=== PATIENT | female | born 1935 | race Caucasian/White ===

== ENCOUNTER 2017-09-24 20:23 | Emergency (ER) | payer MEDICARE ==
[~2017-09-24] VITALS: Ht 154.9 cm; Wt 72.6 kg
[2017-09-24] MEDS ORDERED: CEFTRIAXONE SOD 1 GM VIAL IV STA ×2 (20:24→22:18)
[2017-09-24] MEDS ORDERED: SODIUM CHLORIDE 0.9% 1000ML 1,000 ML IV ONE (20:30)
[2017-09-24] MEDS ORDERED: ACETAMINOPHEN 325 MG TAB PO ONE (20:45)
[2017-09-24] MEDS ORDERED: LACTULOSE20 GM/30 M PO (20:49)
[2017-09-24] MEDS ORDERED: RESTASIS1 EACH OU (20:49)
[2017-09-24] MEDS ORDERED: FAMOTIDINE20 MG PO (20:49)
[2017-09-24] MEDS ORDERED: LASIX20 MG PO (20:49)
[2017-09-24] MEDS ORDERED: LIDODERM PATCH 5% TOP (20:49)
[2017-09-24] MEDS ORDERED: MOBIC7.5 MG PO (20:49)
[2017-09-24] MEDS ORDERED: STRESS B WITH1 EAC2 PO (20:49)
[2017-09-24] MEDS ORDERED: FERROUS SULFAT325 MG PO (20:49)
[2017-09-24] MEDS ORDERED: GABAPENTIN300 MG PO (20:49)
[2017-09-24] MEDS ORDERED: PRILOSEC OTC20 MG PO (20:49)
[2017-09-24] MEDS ORDERED: VITAMIN D PO (20:49)
[2017-09-24] MEDS ORDERED: ZYRTEC10 M3 PO (20:49)
[2017-09-24] MEDS ORDERED: MULTI-VITAMIN1 EACH PO (20:49)
[2017-09-24] MEDS ORDERED: ALLOPURINOL100 MG PO (20:49)
[2017-09-24] MEDS ORDERED: ROPINIROLE HCL1 MG PO (20:49)
[2017-09-24] MEDS ORDERED: TRICOR145 MG PO (20:49)
[2017-09-24] MEDS ORDERED: LANTUS 3ML100 UNITS/ SC (20:49)
[2017-09-24] MEDS ORDERED: LORATADINE10 MG PO (20:49)
[2017-09-24] MEDS ORDERED: THEO-24300 MG PO (20:49)
[2017-09-24] MEDS ORDERED: VALTREX500 MG PO (20:49)
[2017-09-24] MEDS ORDERED: ATENOLOL50 MG PO (20:49)
[2017-09-24] MEDS ORDERED: PROBIOTIC & AC1 EACH PO (20:49)
[2017-09-24] MEDS ORDERED: SINGULAIR10 MG PO (20:49)
[2017-09-24 20:50] LABS: BASOPHILS % 0.1 % (0.0-1.0); EOSINOPHILS # (AUTO) 0.1 (0.0-0.4); HEMATOCRIT 27.5 % (34.2-44.1); HEMOGLOBIN 9.1 g/dL (12.0-16.0); LYMPHOCYTES # (AUTO) 1.6 (1.0-3.2); LYMPHOCYTES % 18.8 % (18.0-39.1); MEAN CORPUSCULAR HEMOGLOBIN 37.9 pg (28-32); MEAN CORPUSCULAR HGB CONC 33.1 g/dL (31-35); MEAN CORPUSCULAR VOLUME 114.6 fL (81-99); MONOCYTES % 12.2 % (4.4-11.3); NEUTROPHILS # (AUTO) 5.6 (2.1-6.9); NEUTROPHILS % 67.3 % (38.7-80.0); PLATELET COUNT 141 x10e3/uL (140-360); RED CELL DISTRIBUTION WIDTH 14.3 % (11.7-14.4)
[2017-09-24 21:01] LABS: BILIRUBIN,URINE NEGATIVE (NEGATIVE); CLARITY,URINE CLEAR (CLEAR); COLOR,URINE YELLOW (YELLOW); KETONES,URINE NEGATIVE (NEGATIVE); LEUKOCYTE ESTERASE ,URINE NEGATIVE (NEGATIVE); NITRITE,URINE NEGATIVE (NEGATIVE); URINE UROBILINOGEN 0.2 mg/dL (0.2 - 1)
[2017-09-24 21:04] LABS: ALBUMIN 2.9 g/dL (3.5-5.0); ALBUMIN/GLOBULIN RATIO 0.7 (0.8-2.0); ANION GAP 15.2 mmol/L (8-16); CALCIUM 9.3 mg/dL (8.4-10.2); CREATININE, SERUM 1.52 mg/dL (0.57-1.11); POTASSIUM 4.2 mmol/L (3.5-5.1)
--- NOTE | 2017-09-24 21:09 | Diagnostic Imaging Report ---
EXAM: CHEST SINGLE (PORTABLE), AP 1 view DATE: 09/24/2017 8:24 PM Time stamp on exam: [id number] INDICATION: Cough, fever COMPARISON: None FINDINGS: LINES/TUBES: None LUNGS: No consolidations or edema. PLEURA: No effusions or pneumothorax. HEART AND MEDIASTINUM: The heart is within normal size limits. Prominence of the bilateral pulmonary arteries. BONES AND SOFT TISSUES: No acute findings. Degenerative changes of the bilateral shoulders. IMPRESSION: No consolidative pneumonia. Signed by: Dr. Vanesa Taveras M.D. on 09/24/2017 9:06 PM
[2017-09-24 21:11] LABS: CREATINE KINASE MB 0.3 ng/mL (0.00-5.00)
[2017-09-24 21:15] LABS: PROTEIN,URINE DIPSTICK 1+ (NEGATIVE)
[2017-09-24 21:30] LABS: BACTERIA,URINE RARE /HPF; EPITHELIAL CELLS,URINE RARE /LPF; RBC,URINE 0-5 /HPF (0-5); WBC,URINE (MAN) 0-5 /HPF (0-5)
[2017-09-24 21:31] LABS: HYALINE CASTS 0-1 (0-1)
[2017-09-24 21:37] LABS: TROPONIN I 0.017 ng/mL (0-0.300)
[2017-09-24 22:49] VITALS: BP 99/56
== END 2017-09-24 23:50 | disposition home or self-care (01) ==
LOC: ER 20:23
DX: J20.9 Acute bronchitis, unspecified (principal); E11.9 Type 2 diabetes mellitus without complications; I11.0 Hypertensive heart disease with heart failure; I50.9 Heart failure, unspecified
CPT/HCPCS: 36415; 71010; 80053; 81001; 82550; 82553; 83605; 84484; 85025; 87040; 87086; 87400; 93005; 96360; 96374; 99284; J0696; J7030